=== PATIENT | female | born 1970 | race Hispanic/Latino ===

== ENCOUNTER 2017-05-08 09:40 | Outpatient (CLI) | payer BC | END 2017-05-08 09:41 | disposition home or self-care (01) | LOC: BICMAMMO 09:40 | PROVIDERS: ATTEND Family Medicine | DX: Z12.31 Encounter for screening mammogram for malignant neoplasm of breast (principal) | CPT/HCPCS: 77063; 77067 ==

== ENCOUNTER 2019-09-15 10:33 | Emergency (ER) | payer BC, OTHER ==
[2019-09-16 12:11] LABS: SARS-CoV-2 MS2 Positive; SARS-CoV-2 N Gene Positive; SARS-CoV-2 S Gene Positive; SARS-CoV-2 orf1ab Positive
== END 2019-09-15 11:00 | disposition home or self-care (01) ==
LOC: ERS 10:33
DX: U07.1 COVID-19 (principal); R50.9 Fever, unspecified; R05 Cough; R09.81 Nasal congestion; E11.9 Type 2 diabetes mellitus without complications; F41.9 Anxiety disorder, unspecified; Z79.4 Long term (current) use of insulin; Z79.899 Other long term (current) drug therapy
CPT/HCPCS: 87635; 99283; U0003